=== PATIENT | female | born 1985 | race Caucasian/White ===

== ENCOUNTER → 2017-08-09 16:10 | Outpatient (CLI) | payer OTHER, SELFPAY ==
[2017-08-09 17:45] LABS: Color, Urine Yellow (Yellow); Glucose, Dipstick Normal (Normal); Ketone-Dipstick Negative (Negative); Leukocyte Esterase-Dipstick 100 /ul (Negative); Nitrite-Dipstick Negative (Negative); Occult Blood-Urine Negative /ul (Negative); Protein-Dipstick Negative (Negative); Urine Bilirubin Dipstick Negative (Negative); Urine Clarity Clear (Clear); Urine Urobilinogen Normal (Normal)
[2017-08-09 17:55] LABS: Absolute Lymphocyte Count 2.63 X10^3/ul (0.83-4.51); Absolute Neutrophil Count 5.9 X10^3/uL (2.0-7.7); Basophil# 0.03 X10^3/uL; Basophil% 0.3 % (0-1); Hematocrit 37.8 % (37-47); Hemoglobin 12.8 g/dl (12.0-15.0); Lymphocyte # 2.63 X10^3/ul (4.0); Lymphocyte % 27.3 % (19-41); Mean Corp Hgb Conc 33.9 g/gl (32-36); Mean Corpuscular Hgb 29.4 pg (27.0-32.0); Mean Corpuscular Volume 86.7 fL (81-99); Mean Platelet Vol. 10.1 fl (6.2-12.0); Monocyte# 1.02 X10^3/uL; Monocyte% 10.6 % (0-10); Neutrophil # 5.86 X10^3/uL (2.7-7.7); Neutrophil % 60.7 % (47-70); Platelet Count 242 K/mm3 (150-450); RBC Distribution Width CV 12.7 % (11.6-14.6); RBC Distribution Width SD 40.6 fl (35.1-43.9); Red Blood Count 4.36 M/mm3 (4.2-5.4); White Blood Count 9.7 K/mm3 (4.4-11.0)
[2017-08-09 17:59] LABS: POSITIVE COUNT NO; POSITIVE DIFFERENTIAL NO; POSITIVE MORPHOLOGY NO
[2017-08-09 18:11] LABS: Amphetamine Urine VISTA NEGATIVE (<1000 ng/mL); Barbiturate Urine VISTA NEGATIVE (< 200 ng/mL); Benzodiazepine Urine VISTA NEGATIVE (< 200 ng/mL); Cocaine Urine VISTA NEGATIVE (< 300 ng/mL); Ecstacy Urine VISTA NEGATIVE (< 500 ng/mL); Methadone Urine VISTA NEGATIVE (< 300 ng/mL); PCP Urine VISTA NEGATIVE (< 25 ng/mL); THC Urine VISTA NEGATIVE (< 50 ng/mL); Vista UDS pH Range 7
[2017-08-10 03:49] LABS: Prenatal RPR NONREACTIVE (NONREACTIVE)
[2017-08-10 12:12] LABS: HIV - WCH Non-Reactive (Nonreactive); Rubella IgG 198.1 IU/mL
[2017-08-11 10:54] LABS: HEPATITIS B SURFACE AG Negative (Negative); Hep C Antibodies <0.1 s/co ratio (0.0-0.9); Toxoplasma Gondii IgG < 3.0 IU/mL (0.0-7.1); Toxoplasma Gondii IgM < 3.0 AU/mL (0.0-7.9)
== END ==
PROVIDERS: Visit Provider Obstetrics & Gynecology
DX: Z34.81 Encounter for supervision of other normal pregnancy, first trimester (principal)
CPT/HCPCS: 36415; 80307; 81002; 84443; 85025; 86703; 86762; 86777; 86778; 86803; 87340

== ENCOUNTER → 2017-12-21 10:00 | Outpatient (CLI) | payer OTHER, SELFPAY ==
[2017-12-21 11:49] LABS: Hematocrit 34.5 % (37-47); Hemoglobin 11.4 g/dl (12.0-15.0); Mean Corpuscular Hgb 29.4 pg (27.0-32.0); Mean Corpuscular Volume 88.9 fL (81-99); Mean Platelet Vol. 9.6 fl (6.2-12.0); Platelet Count 221 K/mm3 (150-450); RBC Distribution Width CV 13.3 % (11.6-14.6); RBC Distribution Width SD 42.5 fl (35.1-43.9); Red Blood Count 3.88 M/mm3 (4.2-5.4)
[2017-12-21 11:55] LABS: Scan Indicated on CBC? Y/N NO
[2017-12-21 12:17] LABS: Glucose Challenge Gest 1H 50g 96 mg/dL (70-140)
== END ==
PROVIDERS: Visit Provider Obstetrics & Gynecology
DX: Z34.83 Encounter for supervision of other normal pregnancy, third trimester (principal)
CPT/HCPCS: 36415; 82950; 85027; 86850

== ENCOUNTER → 2018-01-04 14:27 | Outpatient (CLI) | payer OTHER, SELFPAY ==
--- NOTE | 2018-01-04 14:31 | VDLE_ITS ---
Reason For Study: LEG PAIN RIGHT LEFT GSV is normal. CFV is compressible, spontaneous, phasic, CFV is compressible, spontaneous, phasic, competent, and demonstrates normal competent and demonstrates normal augmentation. augmentation. FV is compressible, spontaneous, phasic, competent and demonstrates normal augmentation. POP V is compressible, spontaneous, phasic, competent and demonstrates normal augmentation. T/P Trunk is compressible. PTV is compressible. RT PerV is compressible. Procedure Exam performed in department. A preliminary report was called and/or faxed to Dr. Thomson. Interpretation Summary Deep veins of the right lower extremity are patent and compressible segmentally. There is no evidence of right lower extremity deep vein thrombosis. Valvular competence appears intact within the proximal deep venous system on the right . The right greater saphenous vein appears patent and compressible segmentally. Ordering Physician: Anne Thomson Referring Physician: Anne Thomson Performed By: Africa Thorne RVT
== END ==
PROVIDERS: Visit Provider Obstetrics & Gynecology
DX: M79.89 Other specified soft tissue disorders (principal); M79.661 Pain in right lower leg
CPT/HCPCS: 93971

== ENCOUNTER → 2018-02-05 17:19 | Outpatient (CLI) | payer OTHER, SELFPAY ==
[2018-02-05 17:28] LABS: ROM Internal Control Test YES-OK TO RESULT pt. (Internal QC)
[2018-02-05 17:57] LABS: ROM Patient Test POSITIVE (Negative)
[2018-02-05 18:33] LABS: Group B Strep DNA By PCR POSITIVE (Negative); Probe Check PASS
== END ==
PROVIDERS: Visit Provider Obstetrics & Gynecology
DX: Z34.83 Encounter for supervision of other normal pregnancy, third trimester (principal)
CPT/HCPCS: 84112; 87653

== ENCOUNTER 2018-02-05 17:25 | Inpatient (IN) | payer OTHER, SELFPAY ==
[2018-02-05 18:26] LABS: Hematocrit 35.3 % (37-47); Hemoglobin 11.7 g/dl (12.0-15.0); Mean Corp Hgb Conc 33.1 g/gl (32-36); Mean Corpuscular Hgb 29.1 pg (27.0-32.0); Mean Corpuscular Volume 87.8 fL (81-99); Mean Platelet Vol. 9.9 fl (6.2-12.0); Platelet Count 214 K/mm3 (150-450); RBC Distribution Width CV 13.5 % (11.6-14.6); RBC Distribution Width SD 43.2 fl (35.1-43.9); Red Blood Count 4.02 M/mm3 (4.2-5.4); Scan Indicated on CBC? Y/N NO; White Blood Count 10.1 K/mm3 (4.4-11.0)
[2018-02-05 18:36] VITALS: BMI 29.7
[2018-02-05] MEDS: Betamethasone/Betamethasone 30 MG/5 ML Vial 12 MG IM (18:39)
[2018-02-06] MEDS: Betamethasone/Betamethasone 30 MG/5 ML Vial 12 MG IM (06:44)
--- NOTE | 2018-02-06 08:22 | PCM.PN.BLA ---
Progress Note 35 1/7 wk SROM Slept ok. A little nervous so didn't rest as well as some nights. Feeling a little cramping. Second dose of betamethasone given this AM approx 7:40 am AVSS CX; deferred 2/2 SROM GBS test yesterday was positive EFM 110-120s mostly with avg variability, accels. variables intermittently. Irregular UCs. Baseline at night lower into 100's A/P: 35 1/7 wk premature SROM. Reviewed expectant management vs initiation of pitocin. Will continue expectant management for 2 d unless inc s/sx of labor. Ampicillin 1 gm IV q 4 hr, and Azithromycin 500 mg po daily.
--- NOTE | 2018-02-06 08:25 | PN_ITS ---
Progress Note 35 1/7 wk SROM Slept ok. A little nervous so didn't rest as well as some nights. Feeling a little cramping. Second dose of betamethasone given this AM approx 7:40 am AVSS CX; deferred 2/2 SROM GBS test yesterday was positive EFM 110-120s mostly with avg variability, accels. variables intermittently. Irregular UCs. Baseline at night lower into 100's A/P: 35 1/7 wk premature SROM. Reviewed expectant management vs initiation of pitocin. Will continue expectant management for 2 d unless inc s/ sx of labor. Ampicillin 1 gm IV q 4 hr, and Azithromycin 500 mg po daily.
[2018-02-06] MEDS: 0.9% NaCl Peripheral Flush Adult/Peds IV ×3 (09:24→15:30)
[2018-02-06] MEDS: Azithromycin 250 MG Tablet 500 MG PO (11:16)
[2018-02-07] MEDS: 0.9% NaCl Peripheral Flush Adult/Peds IV (08:24)
--- NOTE | 2018-02-07 10:09 | PCM.PN.BLA ---
Progress Note PROGRESS NOTE Denies fever, chills, nausea or vomiting. Had small leaking of fluid yesterday and fluid clear however none today. She feels well. Fetus is active. Denies contractions or vaginal bleeding. AVSS GEN 0 NAD, AAO x 3 CV - RRR PULM - CTAB ABD - soft, gravid, nontender FUNDUS - soft, nontender EXT - no calf tenderness A/P: 32yo at 35 2/7wga with PPROM s/p BMZ - Reviewed with patient risks, benefits of continued including risk of infection. Advised induction of labor. Discussed risks, benefits of induction with pitocin. Patient is in agreement and given opportunity to ask questions. Her questions were answered to her satisfaction. Proceed with induction of labor. GBS positive, continue Ampicillin.
[2018-02-07] MEDS: Oxytocin 30 units/NS 500 ml 30 UNITS/500 ML IV.SOLN IV (11:26)
[2018-02-07] MEDS: Lactated Ringers 1,000 ML 50 ML IV ×2 (11:27→18:50)
[2018-02-07] MEDS: Nalbuphine 10 MG/ML Ampul IV (17:16)
--- NOTE | 2018-02-07 18:49 | PCM.PN.BLA ---
Progress Note LABOR PROGRESS NOTE c/o painful contractions [id number] AVSS GEN - NAD, AAO x 3 FHR 120, moderate variability, + accelerations, no decelerations TOCO unable to assess due to maternal movement SVE 3.5/80/-2, cephalic A/P: 32yo @ 35 2/7wga in latent labor, Cat I FHR -Continue pitocin as tolerated by mother and fetus -Pt transitioning into active phase -Pain management prn
--- NOTE | 2018-02-07 18:57 | PN_ITS ---
Progress Note LABOR PROGRESS NOTE c/o painful contractions [id number] AVSS GEN - NAD, AAO x 3 FHR 120, moderate variability, + accelerations, no decelerations TOCO unable to assess due to maternal movement SVE 3.5/80/-2, cephalic A/P: 32yo @ 35 2/7wga in latent labor, Cat I FHR -Continue pitocin as tolerated by mother and fetus -Pt transitioning into active phase -Pain management prn
[2018-02-07] MEDS: fentaNYL-bupivacaine (epidural) 100 ML BAG EPIDURAL (19:07)
--- NOTE | 2018-02-07 19:51 | PLAC_PTH ---
PATIENT: LINA PULIDO LOC: [facility] U#:[id number] AGE/SX: 32/F ROOM: WP003 RE02/05/[address]: Dr. Kathia Castro MD : 1985 BED: 1 DIS: 02/09/2018 SPEC #: [id number] RECD: 02/07/18 21:43 STATUS: EZEQUIEL TRAV #: [id number] HERIBERTO: 02/07/18 19:[address]: Kathia Castro DEPT: SURGICAL PATHOLOGY RECD BY: Chapo Shipman ENTERED: 02/08/18 11:43 SP TYPE: PLACENTA OT DR: No Primary Care Phys Tissues: Placenta, NOS Procedures: Surgery Specimen Level V HEADER OPERATION: Vaginal delivery PRE-OP DIAGNOSIS: 35 weeks TISSUE SUBMITTED: Placenta MICROSCOPIC DIAGNOSIS Rachel placenta (395 gm): Umbilical cord ? bivascular with no inflammation. Placental membranes ? mild acute chorioamnionitis. Acute deciduitis and mild chronic amnionitis with focal acute amnionitis. Placental disc ? nonspecific chronic villitis, focal Stefano-Abilio change and chronic deciduitis. AM:stacey 02/11/18 MICROSCOPIC DESCRIPTION Slides are reviewed. GROSS DESCRIPTION SPECIMEN: PLACENTA / CLINICAL INFORMATION: A. Weight: 2.168 kg B. Gestational Age: 35 weeks C. Sex: Male PLACENTAL WEIGHT (POST FIXATION): 395 mg PLACENTAL DIMENSIONS: Main lobe measures 15 x 17 x 2.5 cm and succenturiate lobe measures 9 x 9 x 2.5 cm PLACENTAL SHAPE: Usual ovoid with a succenturiate lobe PLACENTAL WEIGHT FOR GESTATIONAL AGE: Within 10-99th percentile MEMBRANES - Present A. Insertion: Marginal B. Site of rupture from edge: At edge of placental disc C. Color of membrane: Ren-deleon D. Abnormalities: None UMBILICAL CORD - Present A. Color: Ren-deleon B. Insertion: Paracentral C. Length: 29 cm D. Diameter: Up to 1 cm E. Number of vessels: Two F. Abnormalities: None PLACENTAL DISC - Present A. Color of surface: Ren-deleon B. surface abnormalities: None C. Maternal cotyledons: Intact with minimal tears D. Attached retro placental clot: No clot E. Cut surface: Dark red and spongy F. Lesions: None G. Separate clot: Absent SECTIONS SUBMITTED: 1. Membrane roll 2. Cord, maternal end 3. Cord, end 4. Placental disc, and maternal surfaces, succenturiate lobe 5. Placental disc, and maternal surfaces 6. Placental disc, and maternal surfaces MAURILIO:stacey 02/08/18 TC:2 CPT: 81496
[2018-02-07] MEDS: Oxytocin 30 units/NS 500 ml 30 UNITS/500 ML IV.SOLN 334 UNITS IV (19:58)
--- NOTE | 2018-02-07 20:10 | DCINST_ITS ---
Discharge Diet: No Restrictions Discharge Activity: Return to Normal Activity, May Shower, May Take a Tub Bath May resume sexual activity in: 6 weeks Lifting Restrictions: 20lb Keep extremity elevated above heart level: Left Arm Call your doctor if your incision/area has: Continuous Slow Oozing, Sudden Increased Bleeding, Increased Pain/ Swelling, Increased Redness, Foul Smelling Discharge Call your doctor if you observe: Fever of 101 or Higher, Inability to urinate, Inability to have a bowel movement, Using more than one pad per hour, Shortness of breath, Chest pain, Calf discomfort, Uncontrolled pain Additional Instructions: If you experience any of the following, contact your healthcare provider. * Bleeding that soaks a pad every hour for 2 hours * Fever 100.4 or higher * Unrelieved incision or abdominal pain * Swelling, redness, discharge or bleeding from your incision or episiotomy site * Your incision begins to separate * Problems urinating (including inability to urinate or burning while urinating) . * Visual changes * Severe headache * Flu-like symptoms * Pain or redness in one of both of your breasts * Pain, warmth, tenderness or swelling in your legs, especially the calf area * Frequent nausea and vomiting * Symptoms of depression or anxiety If you experience any of the following, call 911 or go to the nearest Emergency Room. * Chest pain * Problems breathing * Seizure activity * Partial or complete paralysis of a body part, slurred speech, weakness or drooping of the face, or a sudden inability to walk or hold your balance Allergies/Adverse Reactions: Allergies amoxicillin Allergy (Verified 09/22/15 08:08) Rash Penicillins Allergy (Verified 09/22/15 08:08) Rash Medications to take at Discharge Vits [Prenatabs FA] 1 tablet PO DAILY 03/16/15 Ibuprofen 600 mg PO TID PRN #30 tab 02/07/18 The following prescriptions were given: Ibuprofen 600 mg PO TID PRN #30 tab PRN Reason: Pain Please Follow Up With: Anne Thomson MD When: 6 weeks Primary Care Physician: Care Physician,No Primary [Primary Care Provider] - Test Results: Test results from this visit will be discussed in further detail at your follow- up appointment, if applicable.
--- NOTE | 2018-02-07 20:10 | PCM.OB.VAG ---
- Problem List (1) premature rupture of membranes (PPROM) delivered, current hospitalization Status: Acute Comment: s/p betamethasone course (2) (spontaneous vaginal delivery) Status: Acute Vaginal Delivery Maternal Presentation: Medically Indicated Induction Method of Induction: Pitocin Medical Reason for Induction: - - prelabor rupture of membranes Amniotic Membrane Rupture Type: Spontaneous at home Rupture of Membrane time: 02/05/18 0030h Amniotic Fluid Description: Clear Final NICOLE: 03/12/18 Final NICOLE Source: US <20 weeks Gestational age: 35 Weeks and 2 Days doctor who attended delivery (if requested by OB): Ally Silva Date of Procedure: 02/07/18 Pre-Operative Diagnosis: 35 2/7wga, PPROM, induction of labor, GBS positive Post-Operative Diagnosis: 35 2/7wga, PPROM, induction of labor, GBS positive Surgery/ Procedure Performed: Spontaneous Vaginal Delivery Anesthesiologist: Katina Meek Type of Anesthesia: Epidural Description of Procedure: Patient was FD/+3 station. Pushed to deliver a vigorous male infant in OA over an intact perineum. Delivery assisted by Ritgen maneuver due to heart rate decelerations. Infant was placed on the maternal abdomen, cord was stripped and cut and the infant passed to the awaiting Pediatric hospitalist. Cord gases and cord blood specimen were obtained. The placenta delivered spontaneously and appeared intact with presence of the accessory lobe within the membranes. The fundus was firm. Sponge counts correct x 2. Presentation: Vertex Placental Delivery Description: Spontaneous Placenta Disposition: [facility] Cord Vessel Description: 3 Vessels Nuchal Cord Compression: Without compression Cord Gases drawn per routine: ABG, VBG Cord Entanglement: None Estimated Blood Loss: 250 ml A gender: Male (1 minute): 9 (5 minute): 9 Episiotomy Description: None Laceration: None Medications given after delivery: IV Pitocin Complications: None
[2018-02-07] MEDS: Oxytocin 30 units/NS 500 ml 30 UNITS/500 ML IV.SOLN 167 UNITS IV (20:35)
[2018-02-07] MEDS: 0.9% Saline Lock 10 ML Syringe IV (21:35)
[2018-02-08 00:10] VITALS: BP 105/52; PULSE 84; RESP 16; TEMP 37.2
[2018-02-08 04:15] VITALS: BP 102/63; PULSE 80; RESP 17; TEMP 36.6
[2018-02-08] MEDS: Ibuprofen 600 MG Tablet PO ×3 (05:13→20:28)
--- NOTE | 2018-02-08 07:20 | PCM.PN.OB ---
Patient Problems: Active and Suspected Problems (spontaneous vaginal delivery) (Acute) premature rupture of membranes (PPROM) delivered, current hospitalization (Acute) s/p betamethasone course Subjective: No issues overnight. Doing well. Infant nursing. Denies heavy lochia. She is sore from the epidural, but denies perineal pain. She is anxious to go to the bathroom. Objective: AVSS - Physical Exam General: Alert, Oriented x3, Cooperative, No apparent distress HEENT: Atraumatic, Normocephalic Vital Signs Temp Pulse Resp BP 98.2 F 73 24 H 105/64 02/08/18 11:35 02/08/18 11:35 02/08/18 09:10 02/08/18 11:35 Oxygen Delivery Method Room Air Weight: 78.471 kg Body Mass Index (BMI) 29.7 Intake and Output for Last 24 Hours 02/06/18 02/07/18 02/08/18 23:59 23:59 23:59 Intake Total 2119 / 2119 Output Total 975 / 975 400 / 400 Balance 1144 / 1144 -400 / -400 Laboratory Tests Past 24 Hrs 02/07/18 22:00 Screen NEGATIVE Baby's Blood Type O POSITIVE Baby's EMIL NEGATIVE Medical Necessity - Tobacco Use Smoking Status: Former smoker Assessment/Plan All Active Problems (spontaneous vaginal delivery) (Acute) premature rupture of membranes (PPROM) delivered, current hospitalization (Acute) 32yo [id number] PPD#1 s/p -Will return to complete physical exam -Pt in restroom
[2018-02-08 09:10] VITALS: BP 103/56; PULSE 70; RESP 24; TEMP 36.6
[2018-02-08 11:35] VITALS: BP 105/64; PULSE 73; TEMP 36.8
[2018-02-08] MEDS: Prenatal Vits Tablet 1 TABLET PO (11:35)
[2018-02-08 16:00] VITALS: BP 104/72; PULSE 69; RESP 18; TEMP 36.8
[2018-02-08 20:20] VITALS: BP 104/71; PULSE 88; RESP 18; TEMP 36.8
[2018-02-09 01:21] VITALS: BP 106/65; PULSE 66; RESP 16; TEMP 36.5
[2018-02-09] MEDS: Ibuprofen 600 MG Tablet PO (07:18)
--- NOTE | 2018-02-09 07:46 | PCM.PN.OB ---
Subjective: PPD# 2 35 wk SPPROM, delayed induction to allow steroid benefit Doing well. Baby is small, but has been nursing very well. Anticipate dischg today but has to have repeat bili and repeat hearing screen in one ear. Pain control oK. pain mostly with nursing. - Physical Exam General: Alert, Oriented x3, Cooperative, No apparent distress HEENT: Atraumatic Neck: Supple Neurological: Cranial nerves II-XII grossly intact Psych/Mental Status: Normal Affect Vital Signs Temp Pulse Resp BP 97.7 F L 66 16 106/65 02/09/18 01:21 02/09/18 01:21 02/09/18 01:21 02/09/18 01:21 Oxygen Delivery Method Room Air Weight: 78.471 kg Body Mass Index (BMI) 29.7 Intake and Output for Last 24 Hours 02/07/18 02/08/18 02/09/18 23:59 23:59 23:59 Intake Total 2119 / 2119 Output Total 975 / 975 400 / 400 Balance 1144 / 1144 -400 / -400 Medical Necessity - Tobacco Use Smoking Status: Former smoker Assessment/Plan All Active Problems (spontaneous vaginal delivery) (Acute) premature rupture of membranes (PPROM) delivered, current hospitalization (Acute) PPD#2 Doing well. Dischg home today. RTO in 6 wk for pp check, prn sooner.
--- NOTE | 2018-02-09 07:49 | PCM.DC.SUM ---
Discharge Date and Diagnosis Date of Admission: 02/05/18 - 35 wk SPPROM Date of Discharge: 02/09/18 - S/p steroids, induction of labor. Hospital Course and Treatment Operations: - - induction of labor Summary of Care Provided: The patient is a 32 year old female presented at 35 wk with SPPROM. Admitted for steroids to benefit lung maturity, abx for latent phase and expectant management. Undelivered by 48 hr after first dose of betamethasone given. Pitocin induction resulted in of a gruber viable male. 4# 10 oz. per pt report. Baby nursing well. No concerns voiced. course uneventful. Home with baby on PPD#2. Discharge Diet: No Restrictions Discharge Activity: Return to Normal Activity, May Shower, May Take a Tub Bath May resume sexual activity in: 6 weeks Keep extremity elevated above heart level: Left Arm Call your doctor if your incision/area has: Continuous Slow Oozing, Sudden Increased Bleeding, Increased Pain/ Swelling, Increased Redness, Foul Smelling Discharge Call your doctor if you observe: Fever of 101 or Higher, Inability to urinate, Inability to have a bowel movement, Using more than one pad per hour, Shortness of breath, Chest pain, Calf discomfort, Uncontrolled pain Home Medications: Medications to take at Discharge Vits [Prenatabs FA] 1 tablet PO DAILY 03/16/15 Ibuprofen 600 mg PO TID PRN #30 tab 02/07/18 Following Prescrptions Were Given to Patient: Ibuprofen 600 mg PO TID PRN #30 tab PRN Reason: Pain Primary Care Physician: Care Physician,No Primary [Primary Care Provider] - Please Follow Up With: Anne Thomson MD Medical Necessity - Tobacco Use Smoking Status: Former smoker Meaningful Use Info Meaningful Use Diagnoses (Choose all that apply): None applicable
[2018-02-09 07:51] VITALS: BP 109/70; PULSE 70; RESP 16; TEMP 36.7
[2018-02-09] MEDS: Prenatal Vits Tablet 1 TABLET PO (10:01)
[2018-02-09 13:55] VITALS: BP 112/56; PULSE 78; RESP 16; TEMP 37.3
[2018-02-12 12:58] LABS: Pathology Specimen OB SEE PATHOLOGY REPORT
[2018-02-12 12:58] LABS: Pathology Specimen OB SEE PATHOLOGY REPORT
--- NOTE | 2018-02-13 15:34 | NURSING ---
Follow up phone call done. Patient states everything was great, Baby is eating well and has another weight check with baby doctor tomorrow.
== END 2018-02-09 13:55 | disposition home or self-care (01) | DRG 775 ==
PROVIDERS: Obstetrics & Gynecology; Admitting Provider Obstetrics & Gynecology; Visit Provider Obstetrics & Gynecology
DX: O42.913 Preterm premature rupture of membranes, unspecified as to length of time between rupture and onset of labor, third trimester (principal); Z37.0 Single live birth; O99.824 Streptococcus B carrier state complicating childbirth; Z3A.35 35 weeks gestation of pregnancy; O76 Abnormality in fetal heart rate and rhythm complicating labor and delivery; O69.89X0 Labor and delivery complicated by other cord complications, not applicable or unspecified; Z87.891 Personal history of nicotine dependence
CPT/HCPCS: 59050; 85027; 85461; 86850; 86870; 86900; 86901; 88307; 90384; 99218; J7120; A4216; G0378; J0290; J0702; J2790

== ENCOUNTER → 2020-10-01 14:25 | Outpatient (CLI) | payer OTHER, SELFPAY ==
[2020-10-01 17:29] LABS: Absolute Lymphocyte Count 2.17 X10^3/uL (0.83-4.51); Absolute Neutrophil Count 5.1 X10^3/uL (2.0-7.7); Basophil# 0.05 X10^3/uL; Basophil% 0.6 % (0-1); Eosinophil# 0.12 X10^3/uL; Eosinophils% 1.5 % (0-5); Hematocrit 42.8 % (37-47); Hemoglobin 13.7 g/dL (12.0-15.0); Lymphocyte # 2.17 X10^3/ul (4.0); Lymphocyte % 26.4 % (19-41); Mean Corpuscular Hgb 28.8 pg (27.0-32.0); Mean Corpuscular Volume 90.1 fL (81-99); Mean Platelet Vol. 10.3 fl (6.2-12.0); Monocyte# 0.81 X10^3/uL; Monocyte% 9.9 % (0-10); NRBC Flagged by Analyzer 0 % (0-5); Neutrophil # 5.05 X10^3/uL (2.7-7.7); Neutrophil % 61.4 % (47-70); Platelet Count 305 K/mm3 (150-450); RBC Distribution Width CV 12.2 % (11.6-14.6); RBC Distribution Width SD 40.6 fl (35.1-43.9); Red Blood Count 4.75 M/mm3 (4.2-5.4); White Blood Count 8.2 K/mm3 (4.4-11.0)
[2020-10-01 19:57] LABS: ALB/GLOB Ratio 1.2 RATIO (0.9-2.4); AST(SGOT) 15 U/L (15-37); Alanine Aminotransfer ALT/SGPT 22 U/L (13-56); Albumin, Serum 4.3 g/dL (3.2-5.0); Alkaline Phosphatase 98 U/L (45-117); Anion Gap 6 (5-15); BUN 14 mg/dL (7-18); BUN/Creat Ratio 17.4 RATIO (10-20); Calcium,Total 9.4 mg/dL (8.5-10.1); Chloride 105 mmol/L (98-107); EST Glomerular Filtration Rate 86 mL/min (>60); Est Glom Filt Rate - Afr Amer 104 mL/min (>60); Globulin 3.6 g/dL (2.2-4.2); Glucose 74 mg/dL (74-106); Potassium 3.9 mmol/L (3.5-5.1); Protein, Total 7.9 g/dL (6.4-8.2); Rheumatoid Factor < 10.0 IU/mL (<15); Sodium Level 139 mmol/L (136-145)
[2020-10-02 09:03] LABS: Hepatitis B Surface Antibody Reactive; Hepatitis B Surface Antigen Non-Reactive (Nonreactive); Hepatitis C Antibody Non-Reactive (Nonreactive)
[2020-10-06 13:39] LABS: CCP IgG Antibodies 12 units (0-19)
== END ==
PROVIDERS: PCP Student in an Organized Health Care Education/Training Program; Referring Provider Internal Medicine Rheumatology; Visit Provider Internal Medicine Rheumatology
DX: L40.59 Other psoriatic arthropathy (principal)
CPT/HCPCS: 36415; 80053; 85025; 86200; 86431; 86706; 86803; 87340